=== PATIENT | female | born 1970 | race African-American/Black ===

== ENCOUNTER 2021-01-20 22:29 | Emergency (ER) | payer OTHER, SELFPAY ==
--- NOTE | ~2021-01-20 | CT_ITS ---
EXAMINATION: CT abdomen pelvis w con DATE: 01/21/2021 00:56 INDICATION: Postprandial abdominal pain TECHNIQUE: Computed tomography (CT) of the abdomen and pelvis was performed with 100 cc Omnipaque 350 intravenous contrast. Automated exposure control and iterative reconstruction technique were employe d. Exam dose: 1264.24 mGy-cm total exam DLP. COMPARISON: None. FINDINGS: The lung bases are clear of infiltrate or consolidation. Heart size is normal. There is hepatic steatosis. No hepatic, splenic, pancreatic, adrenal or renal space-occupying mass le deven is evident. There is focal scarring in the upper medial aspect of the left kidney. No renal mass lesion is detected. There is a 7.2 x 14 mm calculus within a right urethrocele. No hydronephrosis of either kidney is det ected. The urinary bladder is unremarkable. There is a 2.5 cm right ovarian cyst. The uterus and adnexal areas are otherwise unremarkable. Normal caliber of the abdominal aorta. No intraperitoneal or retroperitoneal or pelvic mass lesion or adenopathy or ascites. Normal appendix. There are multiple diverticula involving predominantly the sigmoid colon and to a le sser extent distal descending colon; no CT evidence of diverticulitis. No bowel obstruction, bowel wa ll thickening, pneumatosis or intraperitoneal free air is detected. There is also sclerosis involving the fourth lumbar vertebral body and the first sacral segment, rais ing concern for possible metastatic disease. Radionuclide bone scan is recommended. IMPRESSION: Osteosclerotic L4 and S1; metastatic disease is suspected. Radionuclide bone scan is rec ommended. Hepatic steatosis 7.2 x 14 mm calculus within right ureterocele 2.5 cm right ovarian cyst Diverticulosis of the left colon; no CT evidence of diverticulitis On 01/21/[address] Merchant telephoned the emergency room physician Dr. Mckeon to inform th of the osteosclerotic lesions at L4 and S1 suspicious for metastatic disease, and the recommendati on for radionuclide bone scan. Reviewed, dictated and finalized at [facility] Reviewed, dictated and finalized at [facility]ER IMPRESSION: Osteosclerotic L4 and S1; metastatic disease is suspected. Radionu clide bone scan is recommended. Hepatic steatosis 7.2 x 14 mm calculus within right ureterocele 2.5 cm right ovarian cyst Diverticulosis of the left colon; no CT evidence of diverticulitis On 01/21/[address] Merchant telephoned the emergency room physician Dr. Mckeon to inform them of the osteosclerotic lesions at L4 and S1 suspicious for metastatic disease, and the recommendation for radionuclide bone scan.
[2021-01-20 22:32] VITALS: BP 121/66; PULSE 100; RESP 19; TEMP 36.5; O2SAT 100
--- NOTE | 2021-01-20 23:18 | ED.GENADULT ---
HPI - General Adult General Chief complaint: Abdominal Pain Stated complaint: abd pain Time Seen by Provider: 01/20/21 22:57 Source: RN notes reviewed History of Present Illness HPI narrative: Patient presents emergency department for abdominal pain. Patient states she was eating at [employer] this evening states she had a [place] ice tea and then was eating when she began to experience severe abdominal pain in the upper abdomen states it was associated with nausea as well as bloating of the abdomen states that the pain is improved but is still continue to have discomfort in the upper abdomen she denies any fevers or chills chest pain shortness of breath vomiting diarrhea or any other symptoms not taking medication for the pain Related Data Home Medications Medication Instructions Recorded Confirmed furosemide 01/20/21 losartan-hydrochlorothiazide 01/20/21 potassium 01/20/21 Allergies Allergy/AdvReac Type Severity Reaction Status Date / Time No Known Allergies Allergy Verified 01/20/21 22:32 Review of Systems Review of Systems: Gen.: Denies fevers or chills ENT: Denies congestion Respiratory: Denies shortness of breath or cough CV: Denies chest pain or palpitations GI: See HPI denies burning, urgency, frequency or hematuria Musculoskeletal: Denies back pain or muscle pain Neuro: Denies numbness, tingling, weakness or focal weakness Skin: Denies rash Except as documented, all other systems reviewed and negative [facility] Past Medical History Medical History (Updated 01/21/21 @ 02:58 by Rahul Young DO) Patient denies significant medical history Social History Social History (Updated 01/20/21 @ 23:18 by Rahul Young DO) Smoking status: Never smoker Exam Narrative: APPEARANCE: No acute distress, nontoxic, resting in bed HEENT: Normocephalic, atraumatic, OMM RESPIRATORY: No respiratory distress, clear to auscultation bilaterally with no rhonchi wheezing or rales CARDIOVASCULAR: RRR s murmur ABDOMINAL: Soft nondistended tender palpation epigastric and right upper quadrant and left upper quadrant no tenderness in right lower quadrant left lower quadrant no rebound or guarding MUSCULOSKELETAl: Moves all extremities. No clubbing, cyanosis or edema. NEURO: Awake and alert. Following commands, speech normal, no focal deficits SKIN:: Warm, dry. Normal Color PSYCHIATRIC: Normal affect/mood Course Course Emergency Course: Called and discussed with Dr. Prado presentation work-up agrees with admission at this time Discussed Dr. Gordillo presentation work-up agrees with consult Discussed with patient her hypokalemia she states she supposed be on potassium when she takes her Lasix but makes her constipated and has not been taking. Use of the admission at this time Patient is currently visiting from [facility] extensive conversation was had with patient and secondary to Covid protocols has been unable stay overnight the patient does not wish to stay in the hospital any longer discussed with patient the risks and benefits of being admitted including hypokalemia and continued potassium checks and replacement also discussed kidney stone need for follow-up with urology. At this time patient has chosen to refuse further care. Risks of an incomplete evaluation and treatment were discussed with the patient including potential for or permanent disability were discussed with the patient seems to understand these risks but still desires to refuse further care. Patient recommended to follow up with her primary care physician in the next possible interval, specifically they?re told they can return to the ED at any time to resume care. Patient does have her potassium pills at home she will take an AMA form was filled out and discharge fever given Vital Signs Vital signs: Vital Signs Temperature 97.7 F 01/20/21 22:32 Pulse Rate 100 01/20/21 22:32 Respiratory Rate 19 01/20/21 22
[2021-01-21 00:02] LABS: Basophils Percent Auto 0.3 % (0.2-1.2); Eosinophils Absolute Auto 0.4 K/mm3 (0-0.3); Eosinophils Percent Auto 6.7 % (0-4.4); Hematocrit 32.3 % (37.0-47.0); Hemoglobin 10.3 g/dL (12.0-15.0); Immature Granulocyte Absolute 0.02 K/mm3 (0.00-0.031); Immature Granulocyte Percent A 0.3 % (0-0.5); Lymphocytes Absolute Auto 1.28 K/mm3 (0.9-3.2); Mean Corpuscular HGB Conc 31.9 g/dl (32-36); Mean Corpuscular Hemoglobin 27.8 pg (26-34); Mean Corpuscular Volume 87.1 fl (80-100); Mean Platelet Volume 9.2 fl (7.4-10.4); Monocytes Absolute Auto 0.7 K/mm3 (0.1-0.6); Monocytes Percent Auto 10.6 % (2.6-8.5); Neutrophils Percent Auto 62.1 % (45.5-73.1); Platelet Count Result 289 k/mm3 (150-375); Red Blood Count 3.71 M/mm3 (4.2-5.4); Red Cell Distribution Width 15.7 % (11.5-14.5); White Blood Count 6.4 K/mm3 (4.5-10.0)
[2021-01-21] MEDS: SODIUM CHLORIDE 0.9% IV 1,000 ML 999 ML IV CONT (00:09)
[2021-01-21 00:32] LABS: Alanine Aminotransferase 23 U/L (4-35); Albumin Level 4.1 g/dL (3.5-5.1); Alkaline Phosphatase 74 U/L (38-126); Anion Gap 15 mmol/L (8-16); Aspartate Amino Transferase 45 U/L (14-36); Bilirubin,Total 0.3 mg/dL (0.2-1.3); Blood Urea Nitrogen 7 mg/dL (7-17); Calcium 8.6 mg/dL (8.4-10.2); Carbon Dioxide 26 mmol/L (22-30); Chloride 95 mmol/L (98-107); Estimated CRCL calculation 70 ml/min; Estimated Glomerular Filt Rate > 60; Glucose 105 mg/dL (65-110); Lipase 150 U/L (23-300); Potassium 2.7 mmol/L (3.4-5.0); Sodium 136 mmol/L (137-145)
--- NOTE | 2021-01-21 00:37 | ECG_ITS ---
Measurements Intervals [place] Rate: 100 P: 42 IL: 190 QRS: 48 QRSD: 101 T: 35 QT: 295 QTc: 381 Interpretive Statements SINUS TACHYCARDIA NONSPECIFIC T-WAVE ABNORMALITY- INF/LAT LEADS BASELINE WANDER- I, II, AVR, AVL, AVF, V1-V3, V6 BORDERLINE ECG Electronically Signed On 01-21-2021 7:06:13 [employer] by Ángel Grimaldo D.O.
--- NOTE | 2021-01-21 00:39 | PC.NURSE ---
Patient taken to CT.
[2021-01-21 00:43] LABS: Add Urine Microscopic? YES; Appearance Urine Cloudy (Clear); Bacteria Urine Trace /hpf; Bilirubin Urine Negative (Negative); Blood Urine Negative (Negative); Color Urine Straw (Yellow); Glucose Urine UA Negative (Negative); Ketones Urine Negative (Negative); Leukocyte Esterase Ur Trace LEU/UL (Negative); Nitrate Urine Negative (Negative); Protein Urine Negative (Negative); Specific Grav Ur 1.006 (1.001-1.035); Squamous Epithelial Cell Urine Few /hpf (Few); Urobilinogen Urine Negative mg/dL (<2.0); WBC Urine 0-3 /hpf
[2021-01-21 00:56] LABS: Magnesium 1.9 mg/dL (1.6-2.3)
[2021-01-21 01:33] VITALS: BP 114/63; PULSE 102; RESP 18; O2SAT 97
[2021-01-21] MEDS: POTASSIUM CHLORIDE 20 MEQ TABLET 40 MEQ PO (01:57)
--- NOTE | 2021-01-21 02:37 | PC.NURSE ---
Patient stating she wants to leave. Patient requesting not to be admitted. ERP notified and spoke with patient. Patient states she will leave AMA and follow up with her specialists in her hometown on Friday. Patient informed of the risks of leaving AMA and benefits of staying. Patient agrees to AMA after her KCL drip finishes infusing. Patient a/0x4.
[2021-01-21 02:40] VITALS: BP 117/56; PULSE 104; RESP 18; O2SAT 99
[2021-01-21 04:14] VITALS: BP 120/72; PULSE 97; RESP 17; TEMP 36.5; O2SAT 98
--- NOTE | 2021-01-22 08:16 | PC.NURSE ---
[id number] ATTEMPTED TO CONTACT @[phone] NO ANSWER, LEFT MESSAGE TO RETURN CALL.
--- NOTE | 2021-01-22 16:51 | PC.NURSE ---
[id number] THIS [employer] AGAIN ATTEMPTED TO CONTACT PT @[phone] AGAIN WITHOUT RESULTS. LEFT MESSAGE TO RETURN CALL.
== END 2021-01-21 04:14 | disposition left against medical advice (07) ==
PROVIDERS: Emergency Provider Emergency Medicine
DX: N20.0 Calculus of kidney (principal); E87.6 Hypokalemia; R00.0 Tachycardia, unspecified; R94.31 Abnormal electrocardiogram [ECG] [EKG]; K57.90 Diverticulosis of intestine, part unspecified, without perforation or abscess without bleeding; N83.201 Unspecified ovarian cyst, right side; M89.9 Disorder of bone, unspecified; K76.0 Fatty (change of) liver, not elsewhere classified
CPT/HCPCS: 36415; 74177; 80053; 81001; 83690; 83735; 85025; 93005; 96365; 96366; 96367; 99284; A9270; J0131; J3480; J7030; Q9967